=== PATIENT | male | born 1980 | race Caucasian/White ===

== ENCOUNTER → 2021-05-21 | Emergency (ER) | payer OTHER ==
[~2021-05-21] MED LIST: BENTYL 20MG TAB20 MG PO; LODINE CAP 300300 MG PO
[2021-05-21 23:33] LABS: HEMOGLOBIN 15.5 gm/dl (14.0-17.5); RED BLOOD COUNT 5.08 M/UL (4.20-5.50); WHITE BLOOD COUNT 10.8 K/UL (4.5-11.0)
[2021-05-21 23:55] LABS: BUN/CREATININE RATIO 13 (0-10)
== END | disposition home or self-care (01) ==
LOC: ER1 21:59
PROVIDERS: Physician Assistant
DX: R10.84 Generalized abdominal pain (principal); Z88.0 Allergy status to penicillin; F17.210 Nicotine dependence, cigarettes, uncomplicated
CPT/HCPCS: 80053; 80307; 81001; 83690; 85025; 87086; 96374; 96375; 99284; J1885; J2405; J7030; Q9967

== ENCOUNTER 2021-12-25 10:44 | Emergency (ER) | payer OTHER ==
[2021-12-25] MEDS ORDERED: CEPHALEXIN500 MG PO (12:20)
[2021-12-25] MEDS ORDERED: BACTRIM DS TAB1 EACH PO (12:20)
== END 2021-12-25 12:35 | disposition home or self-care (01) ==
LOC: ER1 10:44
DX: L03.116 Cellulitis of left lower limb (principal); F17.210 Nicotine dependence, cigarettes, uncomplicated; Z88.0 Allergy status to penicillin
CPT/HCPCS: 73630; 99283

== ENCOUNTER 2021-12-28 11:19 | Inpatient (IN) | payer OTHER ==
[~2021-12-28] VITALS: Ht 180.3 cm; Wt 90.7 kg
[~2021-12-28 11:19] MED LIST changes: +BACTRIM DS TAB1 EACH PO; +CEPHALEXIN500 MG PO
[2021-12-28 13:18] LABS: HEMOGLOBIN 14.5 gm/dl (14.0-17.5); RED BLOOD COUNT 4.77 M/UL (4.20-5.50); WHITE BLOOD COUNT 8.7 K/UL (4.5-11.0)
[2021-12-28 13:40] LABS: BUN/CREATININE RATIO 14 (0-10)
[2021-12-29 06:13] LABS: HEMOGLOBIN 14.1 gm/dl (14.0-17.5); RED BLOOD COUNT 4.74 M/UL (4.20-5.50); WHITE BLOOD COUNT 8.6 K/UL (4.5-11.0)
[2021-12-29 06:36] LABS: BUN/CREATININE RATIO 14 (0-10)
[2021-12-30 05:15] LABS: HEMOGLOBIN 15.1 gm/dl (14.0-17.5); RED BLOOD COUNT 5.1 M/UL (4.20-5.50); WHITE BLOOD COUNT 7.3 K/UL (4.5-11.0)
[2021-12-30 05:44] LABS: BUN/CREATININE RATIO 9 (0-10)
[2021-12-31 06:34] LABS: HEMOGLOBIN 15.8 gm/dl (14.0-17.5); RED BLOOD COUNT 5.23 M/UL (4.20-5.50)
[2021-12-31 07:00] LABS: BUN/CREATININE RATIO 11 (0-10)
[2021-12-31] MEDS ORDERED: IBUPROFEN800 MG PO (09:41)
[2021-12-31] MEDS ORDERED: KEFLEX CAP 250250 MG PO (09:41)
[2021-12-31] MEDS ORDERED: BACTRIM DS TAB1 EACH PO (09:41)
== END 2021-12-31 11:29 | disposition home or self-care (01) | DRG 264 ==
LOC: ER1 11:19 → M/S 15:53 → CDU 15:53 → M/S 15:53
PROVIDERS: Physician Assistant; Physician Assistant Medical; Podiatrist Foot & Ankle Surgery; ADMIT Internal Medicine
PROC: 0JBP0ZZ Excision of Left Lower Leg Subcutaneous Tissue and Fascia, Open Approach (ICD-10-PCS; principal; 2021-12-30 12:00)
DX: I96 Gangrene, not elsewhere classified (principal); L03.116 Cellulitis of left lower limb; F19.10 Other psychoactive substance abuse, uncomplicated; K75.9 Inflammatory liver disease, unspecified; Z20.822 Contact with and (suspected) exposure to COVID-19; F17.210 Nicotine dependence, cigarettes, uncomplicated; Z88.0 Allergy status to penicillin; Z79.899 Other long term (current) drug therapy
CPT/HCPCS: 10060; 36415; 73718; 80048; 80053; 80202; 83735; 85025; 85027; 85652; 86140; 87070; 87205; 96365; 96367; 96375; 96376; 99284; G0378; J1100; J1170; J1885; J2185; J2250; J2405; J2704; J2795; J3010; J3370; J7030; J7050; J7070; J7120